=== PATIENT | female | born 1945 | race Two or more races ===

== ENCOUNTER → 2024-03-23 | Outpatient (CLI) | payer MEDICARE, SELFPAY ==
--- NOTE | 2024-03-23 13:15 | XR_ITS ---
Examination: Screening digital mammography, bilateral Computer aided detection 3-D breast Tomosynthesis, bilateral Date and time of exam: March 23, 2024 1326 hours Compared to mammograms dating to September 14, 2016 Indication: Screening Technique: Nonmagnified MLO, CC views of the breasts to been obtained, reconstructed from 3-D Tomosynthesis images. R2 computer aided detection program utilized for evaluation of suspicious masses and/or abnormal calcifications. 3-D Tomosynthesis images obtained. Findings: Scattered areas of fibroglandular density 14 mm oval mass indistinct margins retroareolar region left breast Impression: BI-RADS Category 0: Incomplete: Need additional imaging evaluation 14 mm oval mass indistinct margins retroareolar region left breast, recommend follow-up spot tomographic views of this mass as well as left breast sonography to complete the workup.
== END | disposition home or self-care (01) ==
LOC: CDIM 13:13
PROVIDERS: PCP Physician Assistant; Referring Provider Physician Assistant; Visit Provider Physician Assistant
DX: Z12.31 Encounter for screening mammogram for malignant neoplasm of breast (principal); R92.8 Other abnormal and inconclusive findings on diagnostic imaging of breast; N63.42 Unspecified lump in left breast, subareolar
CPT/HCPCS: 77063; 77067

== ENCOUNTER → 2024-05-18 | Outpatient (CLI) | payer MEDICARE, SELFPAY ==
--- NOTE | 2024-05-18 11:00 | XR_ITS ---
Examination: Breast ultrasound, unilateral, left complete Date and time of exam: May 18, 2024 1116 hrs. Indications: Mammogram January 21, 2025 14 mm mass retroareolar region left breast Technique: Real-time lopez scale ultrasonographic imaging performed left breast including all 4 quadrants as well as nipple retroareolar and axillary region. Findings: Retroareolar suspicious mass, taller than wide, irregular margins, 2.0 x 1.2 x 1.7 cm Adjacent suspicious mass indistinct margins 7 x 4 x 16 mm Left axillary lymph node with architectural distortion 2.6 cm Impression: BI-RADS Category 4: Suspicious for malignancy Suspicious masses retroareolar left breast, biopsy of these masses needed to exclude breast carcinoma Also recommend biopsy of abnormal appearing left axillary lymph node
--- NOTE | 2024-05-18 11:45 | XR_ITS ---
Examination: Diagnostic digital mammography, unilateral, left Computer aided detection 3-D breast Tomosynthesis, unilateral Date and time of exam: 05/18/2024, 11:34 AM Comparisons: October 2021, March 2024 Indications: Abnormal mammogram Technique: Nonmagnified MLO, CC views of the left breast have been obtained, reconstructed from 3-D Tomosynthesis images. R2 computer aided detection program utilized for evaluation of suspicious masses and/or abnormal calcifications. 3-D Tomosynthesis images obtained. Technologist: Findings: There are scattered areas of fibroglandular density. 1 cm oval mass with indistinct margins approximately 12:00. 7 mm oval mass with indistinct margins medial breast at approximately 3:00. Impression: Suspicious masses at 12:00 and 3:00 as described above. Mass at 12:00 was identified on recent ultrasound exam. Mass at 3:00 is located approximately 3 cm from the mass at 12:00 and was not specifically identified on ultrasound exam. Recommend repeat ultrasound evaluation with radiologist in attendance with focus at the 3:00 region. BI-RADS category 0: Incomplete assessment; need additional imaging evaluation
== END | disposition home or self-care (01) ==
LOC: CDIM 11:00
PROVIDERS: PCP Physician Assistant; Referring Provider Physician Assistant; Visit Provider Physician Assistant
DX: N63.25 Unspecified lump in the left breast, overlapping quadrants (principal); N63.42 Unspecified lump in left breast, subareolar
CPT/HCPCS: 76641; 77061; 77065; G0279

== ENCOUNTER → 2024-07-26 | Outpatient (CLI) | payer MEDICARE, SELFPAY ==
--- NOTE | 2024-07-26 13:30 | XR_ITS ---
Examination: CT chest, without intravenous contrast. Sagittal and coronal 2-D reconstructions. Exam date and time: July 26, 2024 1406 hours INDICATIONS: Localized swelling in the sternum with shortness of breath 2 months COMPARISON: February 23, 2011 CTDI:vol (mGy) 11 DLP: (mGycm) 1 Technique: Multiple 3.0 mm axial sections of the chest to been obtained. Bone and lung density settings are obtained. Sagittal and coronal 2-D reconstructions have been obtained. Low dose protocols were performed. One or more of the following dose reduction techniques were used; automated exposure control, adjustment of the mA and/or KV according to patient size, use of iterative reconstruction technique. Findings: No thoracic aortic aneurysm dilatation Mild enlargement cardiac contour No paratracheal tracheobronchial or bronchopulmonary adenopathy 2 mm pulmonary nodule right middle lobe image 182 Moderate vascular congestion No lobar pneumonia No anjana pulmonary edema No visualized liver or splenic lesions Absent gallbladder No pancreatic or adrenal mass IMPRESSION: 2 mm pulmonary nodule right middle lobe, with this study is baseline recommend 6 month follow-up CT chest without contrast Moderate vascular congestion No lobar pneumonia or pulmonary edema
== END | disposition home or self-care (01) ==
LOC: CCTX 13:17
PROVIDERS: PCP Physician Assistant; Referring Provider Advanced Practice Midwife; Visit Provider Advanced Practice Midwife
DX: R91.1 Solitary pulmonary nodule (principal); R09.89 Other specified symptoms and signs involving the circulatory and respiratory systems
CPT/HCPCS: 71250

== ENCOUNTER → 2024-09-14 | Outpatient (CLI) | payer MEDICARE, SELFPAY ==
[2024-09-13 13:47] LABS: Basophils # (Auto) 0.0 Thou/mm3 (0.0-0.2); Basophils % (Auto) 1 % (0-2.5); Eosinophils # (Auto) 0.1 Thou/mm3 (0.0-0.5); Eosinophils % (Auto) 3 % (0-10); Hematocrit 39.7 % (36.0-46.0); Hemoglobin 13.3 g/dL (12.0-16.0); Immature Granulocytes Auto 0.00 Thou/mm3 (0.00-0.00); Lymphocytes # (Auto) 1.6 Thou/mm3 (1.0-4.8); Lymphocytes % (Auto) 39 % (10-50); Mean Corpuscular HGB Conc 33.5 g/dl (31.0-37.0); Mean Corpuscular Hemoglobin 33.0 pg (25.0-35.0); Mean Corpuscular Volume 99 fL (80-100); Monocytes # (Auto) 0.4 Thou/mm3 (0.0-0.8); Monocytes % (Auto) 11 % (0-12); Neutrophils # (Auto) 1.9 Thou/mm3 (1.8-7.7); Neutrophils % (Auto) 47 % (37-80); Nucleated Red Blood Cell # 0.00 Thou/mm3 (0.00-0.00); Nucleated Red Blood Cell % 0 /100 WBC (0); Platelet Count 198 Thou/mm3 (140-440); RDW Standard Deviation 45.4 fL (36.4-46.3); Red Blood Count 4.03 Miln/mm3 (4.00-5.20); White Blood Count 4.0 Thou/mm3 (3.6-11.0)
[2024-09-13 13:54] LABS: INR 1.0 (0.9-1.3); Partial Thromboplastin Time 27.6 Seconds (22.0-36.0); Prothrombin Time 11.3 Seconds (9.0-12.2)
--- NOTE | 2024-09-14 08:30 | XR_ITS ---
Examinations: Ultrasound-guided percutaneous breast biopsy, left breast retroareolar nodule Left breast sonography limited INDICATIONS: Left breast sonogram are 2024 BI-RADS 4 suspicious nodule retroareolar region left breast. Exam date and time: September 14, 2024 0930 hours. Informed consent provided. Technique: A timeout was completed verifying correct patient, procedure, site, positioning, and special equipment if applicable Informed consent provided. The patient was placed in a supine position for the breast biopsy. Sonographic images of the breast were performed for localization of the suspicious nodule The patient's breast was prepped and draped in sterile fashion. Maximum sterile barrier technique, hand hygiene, ultrasound sterile technique 1% lidocaine was used to anesthetize the skin and breast adjacent to the suspicious nodule. Utilizing ultrasonographic guidance, 8 core biopsies were obtained of the suspicious nodule utilizing an 18-gauge BioPince needle. The specimens appears satisfactory. US guided breast biopsy marker placement. Estimated blood loss 3 cc. The patient tolerated the procedure well and there were no complications. Impression: Successful ultrasound-guided percutaneous breast biopsy, left breast retroareolar nodule. Ultrasound guided breast biopsy marker placement.
--- NOTE | 2024-09-14 08:30 | XR_ITS ---
Examinations: Ultrasound-guided percutaneous left axillary node biopsy Left axillary sonography limited Exam date and time: September 14, 2024 0953 hours INDICATIONS: BI-RADS 4 suspicious axillary lymph node on sonogram May 21, 2024. Informed consent provided. Technique: A timeout was completed verifying correct patient, procedure, site, positioning, and special equipment if applicable Informed consent provided. The patient was placed in a supine position for the axillary node biopsy Sonographic images of the axilla were performed for localization of the suspicious nodule The patient's breast was prepped and draped in sterile fashion. Maximum sterile barrier technique, hand hygiene, ultrasound sterile technique 1% lidocaine utilized for local anesthesia Utilizing ultrasonographic guidance, 8 core biopsies were obtained of the axillary lymph node utilizing an 18-gauge BioPince needle. The specimens appears satisfactory. . The patient tolerated the procedure well and there were no complications. Impression: Successful CT-guided percutaneous biopsy left axillary lymph node
--- NOTE | 2024-09-14 08:30 | XR_ITS ---
Examinations: Ultrasound-guided percutaneous breast biopsy, left breast retroareolar nodule Left breast sonography limited INDICATIONS: BI-RADS 4 suspicious nodule retroareolar region left breast on left breast sonogram May 18, 2024. Exam date and time: September 14, 2024 0950 hours. Informed consent provided. Technique: A timeout was completed verifying correct patient, procedure, site, positioning, and special equipment if applicable Informed consent provided. The patient was placed in a supine position for the breast biopsy. Sonographic images of the breast were performed for localization of the suspicious nodule The patient's breast was prepped and draped in sterile fashion. Maximum sterile barrier technique, hand hygiene, ultrasound sterile technique 1% lidocaine was used to anesthetize the skin and breast adjacent to the suspicious nodule. Utilizing ultrasonographic guidance, 8 core biopsies were obtained of the suspicious nodule utilizing an 18-gauge BioPince needle. The specimens appears satisfactory. Estimated blood loss 3 cc. The patient tolerated the procedure well and there were no complications. Impression: Successful ultrasound-guided percutaneous breast biopsy, left breast retroareolar nodule.
== END | disposition home or self-care (01) ==
LOC: SDIM 08:12
PROVIDERS: Radiology Diagnostic Radiology; PCP Physician Assistant; Referring Provider Physician Assistant; Visit Provider Physician Assistant
DX: C50.012 Malignant neoplasm of nipple and areola, left female breast (principal); C50.612 Malignant neoplasm of axillary tail of left female breast; Z17.0 Estrogen receptor positive status [ER+]; Z17.22 Progesterone receptor negative status; Z01.812 Encounter for preprocedural laboratory examination
CPT/HCPCS: 19083; 19084 ×2; 36415; 85025; 85610; 85730; A4648